=== PATIENT | female | born 1945 | race Caucasian/White ===

== ENCOUNTER 2016-09-10 07:39 | Day surgery (SDC) | payer MEDICARE, OTHER ==
[2016-09-10 08:33] LABS: HEMOGLOBIN 13.2 g/dL (12-16); MCH 29.5 pg (26.0-34.0); MCHC 32.2 g/dL (31.0-37.0); MCV 91.5 fL (80.0-100.0); MEAN PLATELET VOLUME 10.6 fL (7.4-10.4); RBC 4.48 10x6/uL (4.00-5.40); RDW 12.7 % (11.5-14.5); WBC 4.7 10x3/uL (4.8-10.8)
[2016-09-10] MEDS ORDERED: ALTOPREV40 MG PO (09:00)
[2016-09-10] MEDS ORDERED: CELEXA40 MG PO (09:00)
[2016-09-10] MEDS ORDERED: PREMARIN45 GM VG (09:01)
[2016-09-10 09:08] VITALS: BP 120/64; BMI 35.4
--- NOTE | 2016-09-10 13:28 | NUR ---
1150 IV DC WITH CATHER TIP INTACT
--- NOTE | 2016-09-16 15:57 | OP ---
PATIENT NAME: INGRID GOMEZ MEDICAL RECORD: [id number] :47 LOCATION:D.OPS ADMISSION DATE: SURGEON: IGNACIO GOODE MD DATE OF OPERATION: 09/10/2016 SURGEON: Ignacio Goode MD. ANESTHESIA: MAC by Dr. Golden and Octavio Mitchell CRNA. PREOPERATIVE DIAGNOSIS: Interstitial cystitis. 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 PROCEDURES: Cystoscopy, bladder biopsy, intravesical Rimso-50 installation. SPECIMENS: Bladder biopsy. ESTIMATED BLOOD LOSS: Minimal. CLINICAL HISTORY: This is a 70-year-old female, who has had longstanding history of suprapubic pain, urinary urgency and frequency every 1 hour, and urethral pain. She has seen another urologist in town. He said she had a very "angry" bladder. He has put her on 1 year of nitrofurantoin without any benefit to the patient. When I saw the patient, I told her that her symptoms are highly suggestive of interstitial cystitis. Also, because of the risks of nitrofurantoin causing pulmonary fibrosis, I suggested that she stop the nitrofurantoin entirely, especially as it has not been helping her. She also has numerous antibiotic allergy. We gave her 50 mg of IV gentamicin today as SHE IS ALLERGIC TO FLUOROQUINOLONES WELL BETA-LACTAMS. DESCRIPTION OF PROCEDURE: She was given IV sedation. She was placed in the dorsal lithotomy position and prepped and draped. A 21-Azeri cystoscope with 30-degree lens was used for visualization using sterile water. She has single ureteral orifices on each side. The bladder was extremely inflamed throughout. On the dome and on the anterior wall of the bladder were numerous ulcerated areas, which are actively bleeding. Stellate vessels were radiating from these points. These constituted the Hunner ulcers. I placed a rigid biopsy forceps and biopsied one on the dome of the bladder. This was sent to pathology in formalin. The biopsy site was cauterized using a Bugbee electrode. We then emptied the bladder completely through the cystoscope sheath. A 14-Azeri red rubber catheter was placed into the bladder and 50 mL of 50% Rimso solution was instilled into the bladder. The catheter was removed, leaving the solution in the bladder. The patient will void this solution out later today. She was awakened and brought to the recovery room. TRANSINT:[id number] Voice Confirmation ID: [id number] DOCUMENT ID: [id number] OPERATIVE REPORT [id number] INGRID GOMEZ, IGNACIO Carrion MD at 1557 CC: [id number] DICTATION DATE: 09/10/16 1049 SAS ANALYST: 09/10/16 1211 [facility] [place] 09/10/16 [place] [id number]
== END 2016-09-10 13:00 | disposition home or self-care (01) ==
LOC: D.OPS 07:39
PROVIDERS: Anesthesiology
DX: N30.10 Interstitial cystitis (chronic) without hematuria (principal)

== ENCOUNTER → 2017-04-26 17:59 | Outpatient (CLI) | payer MEDICARE, OTHER ==
[~2017-04-26 17:59] MED LIST: ALTOPREV40 MG PO; CELEXA40 MG PO; PREMARIN45 GM VG
== END | disposition home or self-care (01) ==
LOC: D.LABREF 17:59
DX: N39.0 Urinary tract infection, site not specified (principal)

== ENCOUNTER → 2017-05-10 17:50 | Outpatient (CLI) | payer MEDICARE, OTHER | END | disposition home or self-care (01) | LOC: D.LABREF 17:50 | DX: N39.0 Urinary tract infection, site not specified (principal) ==

== ENCOUNTER 2018-03-31 08:05 | Day surgery (SDC) | payer MEDICARE, OTHER ==
[~2018-03-31] VITALS: Ht 154.9 cm; Wt 81.6 kg
--- NOTE | ~2018-03-31 | OP ---
PATIENT NAME: INGRID GOMEZ MEDICAL RECORD: [id number] :47 LOCATION:D.[facility] ADMISSION DATE: SURGEON: IGNACIO GOODE MD DATE OF OPERATION: 03/31/2018 SURGEON: Ignacio Goode MD ANESTHESIA: TIVA by Octavio Mitchell. DIAGNOSIS: Interstitial cystitis. PROCEDURES: Cystoscopy, hydrodistention of the bladder, intravesical Rimso installation. BLOOD LOSS: None. FINDINGS: On cystoscopy, single ureteral orifices, no bladder tumors. Diffuse bladder inflammation with glomerulations. CLINICAL HISTORY: This is a 72-year-old female, who had Hunner's ulcers interstitial cystitis as shown on cystoscopy in 2017. She had treatment with a course of intravesical Rimso and it was helpful to her. Currently, she has another flare-up. It starts with right-sided vaginal pain, dyspareunia, urinary frequency, and there is nocturia greater than 3 also. She has had intravesical Rimso given to her in the office, but it has not had the same effect as before. She comes today for cystoscopy, hydrodistention, and intravesical Rimso instillation. SHE IS ALLERGIC TO ASPIRIN, CEPHALEXIN, PRIMAXIN, CIPRO, PROTONIX, INFLUENZA VACCINE. She was given IV clindamycin resource conservationist to the OR. DESCRIPTION OF PROCEDURE: The patient was given IV sedation. She was placed in dorsal lithotomy position and prepped and draped. A 17-Burmese cystoscope with 30-degree lens was used for visualization. Severe bladder inflammation was noted, but no bladder tumors were seen. Through the cystoscope, we instilled at least 500 mL of normal saline into her bladder. The bladder was extremely vascular on bladder hydrodistention. After 3 minutes of hydrodistention, we deflated the bladder. Gross hematuria was seen at the very end. We then removed the cystoscope and inserted a 16-Burmese straight catheter. Through this 16-Burmese catheter, we inserted the intravesical Rimso 50 mL solution. Once the Rimso was in the bladder, we removed the catheter and we let the patient keep the Rimso in for a period of at least 15 minutes. After that, she can void out the medication. She will be seen in clinic next week to have another course of Rimso given to her. TRANSINT:[id number] Voice Confirmation ID: [id number] DOCUMENT ID: [id number] IGNACIO GOODE MD at 1318 CC: [id number] DICTATION DATE: 03/31/18 1228 [employer] ASSEMBLER: 03/31/18 1239 [facility] [place] [id number] [place] [id number]
[~2018-03-31 08:05] MED LIST changes: +PROBIOTIC BLEN1 EACH PO; +UROGESIC-BLUE TABLET PO
[2018-03-31 08:24] LABS: HEMATOCRIT 40.8 % (36.0-48.0); HEMOGLOBIN 13.6 g/dL (12-16); MCH 29.1 pg (26.0-34.0); MCHC 33.3 g/dL (31.0-37.0); MCV 87.2 fL (80.0-100.0); MEAN PLATELET VOLUME 9.6 fL (7.4-10.4); RBC 4.68 10x6/uL (4.00-5.40); RDW 13.2 % (11.5-14.5); WBC 4.5 10x3/uL (4.8-10.8)
[2018-03-31 11:05] VITALS: BP 141/59; Ht 154.9 cm; Wt 81.6 kg
== END 2018-03-31 14:35 | disposition home or self-care (01) ==
LOC: D.OPS 08:05 → D.PAN 10:20 → D.OPS 11:30 → D.PAN 11:30 → D.OPS 14:35
PROVIDERS: Anesthesiology
DX: N30.10 Interstitial cystitis (chronic) without hematuria (principal)

== ENCOUNTER → 2018-11-16 17:13 | Outpatient (CLI) | payer MEDICARE, OTHER ==
[2018-03-31 11:05] VITALS: BMI 34.0
== END | disposition home or self-care (01) ==
LOC: D.LABREF 17:13
PROVIDERS: ATTEND Urology
DX: D72.829 Elevated white blood cell count, unspecified (principal); R31.9 Hematuria, unspecified

== ENCOUNTER 2018-11-17 06:06 | Day surgery (SDC) | payer MEDICARE, OTHER ==
[~2018-11-17] VITALS: Ht 154.9 cm; Wt 81.6 kg
[2018-11-17 06:39] LABS: HEMATOCRIT 39.7 % (36.0-48.0); MCH 28.6 pg (26.0-34.0); MCHC 32.7 g/dL (31.0-37.0); MCV 87.3 fL (80.0-100.0); MEAN PLATELET VOLUME 9.7 fL (7.4-10.4); RBC 4.55 10x6/uL (4.00-5.40); RDW 13.2 % (11.5-14.5)
[2018-11-17 07:36] VITALS: BP 127/73; Ht 154.9 cm; Wt 81.6 kg
--- NOTE | 2018-11-17 10:10 | NUR ---
REC'D FROM RR. FAMILY AT BEDSIDE. FL DIET SERVED. ENCOURAGED PATIENT TO ROTATE FROM SIDE TO SIDE TO MOVE MEDICATION AROUND. VERBALIZED UNDERSTANDING.
--- NOTE | 2018-11-17 10:40 | NUR ---
INCONTINENT OF URINE. LINEN AND GOWN CHANGED. FAMILY AT BEDSIDE.
--- NOTE | 2018-11-17 11:00 | NUR ---
TOLERATED FL DIET. IV DC'D WITH CATHETER INTACT.
--- NOTE | 2018-11-17 11:15 | NUR ---
WRITTEN AND VERBAL DC INST. GIVEN TO PT. VERBALIZED UNDERSTANDING.
--- NOTE | 2018-11-17 11:25 | NUR ---
DC'D HOME WITH FAMILY VIA PRIVATE VEHICLE. STABLE AT TIME OF DC.
--- NOTE | 2018-11-17 12:00 | OP ---
PATIENT NAME: INGRID GOMEZ MEDICAL RECORD: [id number] :47 LOCATION:D.OPS ADMISSION DATE: SURGEON: IGNACIO GOODE MD DATE OF OPERATION: 11/17/2018 SURGEON: Ignacio Goode MD. ANESTHESIA: TIVA by Catrachita Miller CRNA. DIAGNOSIS: Interstitial cystitis. PROCEDURE: Cystoscopy, hydrodistention of the bladder and intravesical Rimso instillation. BLOOD LOSS: None. FINDINGS: Diffusely inflamed bladder with no bladder tumors. CLINICAL HISTORY: This is a 72-year-old female, who has had a history of interstitial cystitis, which has responded to intravesical Rimso in the past. She currently has a flare up of symptoms including suprapubic pain, vaginal pain, and urinary frequency and urgency. Urine cultures have shown no growth. She comes today to have this treated. She is allergic to multiple antibiotics and she was given clindamycin IV senior analytic consultant to the OR. DESCRIPTION OF PROCEDURE: The patient was given IV sedation. She was then placed into lithotomy position. She was prepped and draped. A 17-Swedish cystoscope with 30-degree lens was used for visualization. Findings are as outlined above. No bladder tumors were seen. She had hydrodistention to at least 500 mL and the bladder became quite angry and red with prominent glomerulations and acute hemorrhage. The bladder was then emptied fully through the cystoscope sheath and the scope was removed. We inserted a 16-Swedish red rubber catheter and through the lumen of this catheter, we instilled 50 mL of Rimso solution. Once the solution was in the bladder, we removed the catheter. She will hold the Rimso solution in for at least 15 minutes and then void it out. I will see her in followup in 2-3 weeks' time. TRANSINT:[id number] Voice Confirmation ID: [id number] DOCUMENT ID: [id number] IGNACIO GOODE MD at 1200 CC: [id number] DICTATION DATE: 11/17/18 0948 FURNACE CHARGER: 11/17/18 1056 [facility] [address] [place] [address]
== END 2018-11-17 11:25 | disposition home or self-care (01) ==
LOC: D.OPS 06:06 → D.PAN 08:30 → D.OPS 09:00 → D.PAN 09:00 → D.OPS 11:25
PROVIDERS: Anesthesiology; ATTEND Urology
DX: N30.10 Interstitial cystitis (chronic) without hematuria (principal)

== ENCOUNTER → 2019-05-12 13:26 | Outpatient (CLI) | payer MEDICARE, OTHER ==
[2018-11-17 07:36] VITALS: BMI 34.0
== END | disposition home or self-care (01) ==
LOC: D.LABREF 13:26
PROVIDERS: ATTEND Urology
DX: R31.9 Hematuria, unspecified (principal)